=== PATIENT | female | born 1985 | race Hispanic/Latino ===

== ENCOUNTER 2021-04-01 14:54 | Emergency (ER) | payer SELFPAY ==
[~2021-04-01] VITALS: Ht 165.1 cm; Wt 77.1 kg
[2021-04-01] MEDS ORDERED: IBUPROFEN 600 MG TAB ONE (16:04)
[2021-04-01] MEDS ORDERED: IBUPROFEN 600 MG TAB PO ONE (16:30)
== END 2021-04-01 16:29 | disposition home or self-care (01) ==
LOC: EDSEX 14:54 → ER 14:59
DX: S00.03XA Contusion of scalp, initial encounter (principal); R42 Dizziness and giddiness; W22.09XA Striking against other stationary object, initial encounter; Y92.008 Other place in unspecified non-institutional (private) residence as the place of occurrence of the external cause; I10 Essential (primary) hypertension
CPT/HCPCS: 70450; 99284